=== PATIENT | male | born 1970 | race Caucasian/White ===

== ENCOUNTER 2019-05-18 04:03 | Inpatient (IN) | payer MEDICAID ==
[~2019-05-18] VITALS: Ht 172.7 cm; Wt 81.6 kg
[2019-05-18 04:12] VITALS: Ht 172.7 cm; Wt 81.6 kg
[2019-05-18 05:03] LABS: CHLORIDE SERUM 105 mmol/L (98-107); GFR1 > 60 mL/min; GLUCOSE SERUM 98 mg/dL (74-106); POTASSIUM SERUM 4.1 mmol/L (3.5-5.1); SODIUM SERUM 143 mmol/L (136-145)
[2019-05-18 05:04] LABS: BASOPHIL % 0.7 % (0-2); PLATELET COUNT 259 x10^3mcL (130-400); RED CELL DISTRIBUTION WIDTH 12.7 % (11.5-14.5)
[2019-05-18 05:07] LABS: ALBUMIN 3.5 g/dL (3.4-5.0); ALKALINE PHOSPHATASE 62 U/L (46-116); ALT/SGPT 33 U/L (16-63); AST/SGOT 13 U/L (15-37); BILIRUBIN TOTAL 0.2 mg/dL (0.20-1.00); LIPASE 213 IU/L (73-393); TOTAL PROTEIN, SERUM 6.7 g/dL (6.4-8.2)
[2019-05-18] MEDS ORDERED: ELIQUIS5 MG PO (06:23)
[2019-05-18 06:39] LABS: AMPHETAMINE QUAL UR POSITIVE (See below)
[2019-05-18 08:19] LABS: T3 TOTAL 1.36 ng/mL
[2019-05-18 08:24] LABS: FREE T4 1.04 ng/dL (0.76-1.46); FREE THYROXINE INDEX 2.4 ug/dL (1.4-4.5); T4(THYROXINE) 7.4 ug/dL (4.7-13.3)
[2019-05-18 09:40] LABS: CHOLESTEROL/HDL RATIO 4.9
[2019-05-18 11:52] VITALS: BP 135/83
[2019-05-18 15:02] VITALS: BP 120/80
[2019-05-18 15:31] VITALS: BP 123/76
[2019-05-18 19:34] VITALS: BP 124/81
[2019-05-19 05:14] VITALS: BP 125/82
[2019-05-19 07:53] VITALS: BP 140/92
[2019-05-19 09:26] LABS: BASOPHIL % 0.7 % (0-2); PLATELET COUNT 267 x10^3mcL (130-400); RED CELL DISTRIBUTION WIDTH 13.1 % (11.5-14.5)
[2019-05-19 09:46] LABS: CALCIUM 9.4 mg/dL (8.5-10.1); CHLORIDE SERUM 102 mmol/L (98-107); CREATININE SERUM 1.2 mg/dL (0.7-1.3); GFR1 > 60 mL/min; GLUCOSE SERUM 200 mg/dL (74-106); MAGNESIUM 2.3 mg/dL (1.8-2.4); PHOSPHOROUS 3.1 mg/dL (2.5-4.9); POTASSIUM SERUM 4.5 mmol/L (3.5-5.1); SODIUM SERUM 139 mmol/L (136-145)
[2019-05-19] MEDS ORDERED: PRI20 PO (11:20)
[2019-05-19] MEDS ORDERED: NICOTINE T7 MG/24 H1 TOP (11:57)
[2019-05-19 12:52] VITALS: BP 144/97
== END 2019-05-19 14:51 | disposition home or self-care (01) | DRG 243 ==
LOC: ED 04:03 → DU 06:01
PROVIDERS: Emergency Medicine; Internal Medicine; ADMIT Internal Medicine
DX: K21.9 Gastro-esophageal reflux disease without esophagitis (principal); F15.20 Other stimulant dependence, uncomplicated; F17.210 Nicotine dependence, cigarettes, uncomplicated; Z68.27 Body mass index [BMI] 27.0-27.9, adult; Z86.711 Personal history of pulmonary embolism; Z79.01 Long term (current) use of anticoagulants
CPT/HCPCS: 83880; 84439; 85378; G0378; J2270; Q0092

== ENCOUNTER 2020-01-04 21:43 | Emergency (ER) | payer MEDICAID ==
[~2020-01-04] VITALS: Ht 172.7 cm; Wt 81.6 kg
[~2020-01-04 21:43] MED LIST: ELIQUIS5 MG PO; NICOTINE T7 MG/24 H1 TOP; PRI20 PO
[2020-01-04 21:53] VITALS: Ht 172.7 cm; Wt 81.6 kg
[2020-01-04 22:34] LABS: BASOPHIL % 0.4 % (0-2); PLATELET COUNT 284 x10^3mcL (130-400); RED CELL DISTRIBUTION WIDTH 12.7 % (11.5-14.5)
[2020-01-04 22:51] LABS: CALCIUM 9.2 mg/dL (8.5-10.1); CARBON DIOXIDE 27.2 mmol/L (21-32); CHLORIDE SERUM 100 mmol/L (98-107); GFR1 > 60 mL/min; GLUCOSE SERUM 111 mg/dL (74-106); POTASSIUM SERUM 3.6 mmol/L (3.5-5.1); SODIUM SERUM 136 mmol/L (136-145)
[2020-01-04 22:53] LABS: ALBUMIN 3.9 g/dL (3.4-5.0); ALKALINE PHOSPHATASE 72 U/L (46-116); ALT/SGPT 27 U/L (16-63); AST/SGOT 12 U/L (15-37); BILIRUBIN TOTAL 0.8 mg/dL (0.20-1.00); LIPASE 76 IU/L (73-393); TOTAL PROTEIN, SERUM 7.1 g/dL (6.4-8.2)
[2020-01-05 01:20] VITALS: BP 139/86
== END 2020-01-05 01:20 | disposition home or self-care (01) ==
LOC: ED 21:43
PROVIDERS: Emergency Medicine
DX: K29.70 Gastritis, unspecified, without bleeding (principal)
CPT/HCPCS: C9113; J2405; J3010; J7030